=== PATIENT | male | born 1965 | race Caucasian/White ===

== ENCOUNTER → 2020-03-22 | Outpatient (CLI) | payer BC, OTHER ==
--- NOTE | 2020-03-22 12:43 | KCIC ---
Examination: MRI of the right knee without contrast HISTORY: History of right knee pain COMPARISON: None available Technique: Multiplanar, multisequence MR imaging of the right knee was performed without contrast. FINDINGS: The anterior cruciate ligament, posterior cruciate ligament appears intact. There is blunting of the body of the medial meniscus could be a small radial tear. A 1.3 cm cystic structure identified extending from the posterior root of the medial meniscus likely a small ganglion cyst. The lateral meniscus appears intact. The extensor mechanism appears intact. The medial collateral ligament appears intact. Lateral collateral ligamentous complex including the fibular collateral, biceps femoris tendon, popliteus tendon appears intact. The extensor mechanism is intact. The medial, lateral retinaculum appears intact. Small knee joint effusion. There is superficial fraying of cartilage identified in the patellar trochlea and medial and lateral compartments. There is a 1.5 cm cystic structure identified extending posteriorly from the proximal tibiofibular joint could be a small ganglion cyst. Mild joint space loss identified in medial, lateral, patellofemoral compartments. IMPRESSION: 1. Small radial tear body of the medial meniscus. 2. 1.3 cm cystic structure identified extending from the posterior root of the medial meniscus likely a small ganglion cyst. A 1.5 cm cystic structure identified extending posteriorly from the proximal tibiofibular joint could be a small ganglion cyst. 3. Mild tricompartmental degenerative changes. Electronically signed by: Doug Orozco MD (03/22/2020 12:40 PM) [id number]
== END ==
LOC: KCIC MRI 09:50
PROVIDERS: ATTEND Physician Assistant Medical
DX: S83.241A Other tear of medial meniscus, current injury, right knee, initial encounter (principal); M25.461 Effusion, right knee; M23.021 Cystic meniscus, posterior horn of medial meniscus, right knee; X58.XXXA Exposure to other specified factors, initial encounter; Y93.89 Activity, other specified; Y92.89 Other specified places as the place of occurrence of the external cause; Y99.8 Other external cause status
CPT/HCPCS: 73721

== ENCOUNTER → 2021-03-27 | Outpatient (CLI) | payer BC ==
--- NOTE | 2021-03-28 09:38 | KCIC ---
EXAM: MRI LEFT SHOULDER WITHOUT CONTRAST INDICATION: Left shoulder dislocation 2 weeks ago. Pain and limited range of motion COMPARISON: Left shoulder radiograph 03/11/2021 TECHNIQUE: Multiplanar, multisequence imaging of the lower shoulder without contrast. FINDINGS: ROTATOR CUFF: There are chronic complete tears of the supraspinatus and infraspinatus tendons. Supras pinatus tendon is retracted to at least the glenoid. The infraspinatus tendon is retracted medial to the glenoid. There is a full-thickness tear of the upper half of the subscapularis tendon at the lesser tuberosity . There is an additional full-thickness tear at the myotendinous junction in the mid to lower portion of the subscapularis (image 17 series 5 and image 15-16 series 3). Teres minor tendon is intact. There is moderate to severe fatty atrophy of most of the subscapularis muscle. Moderate fatty atrophy and mild edema in the infraspinatus muscle. There is edema in the infr aspinatus muscle. No significant fatty atrophy or edema of the supraspinatus muscle. LABRUM: Superior labral tear and fraying elsewhere. BICEPS TENDON: Tendinopathy and longitudinal split tear of the biceps tendon, which is dislocated med ially into the joint. ACROMIOCLAVICULAR JOINT: There is moderate acromioclavicular degenerative joint disease. Lateral down sloping acromion. GLENOHUMERAL JOINT: There is an acute Hill-Sachs fracture with impaction of the posterior superior hu meral head and associated marrow edema. Mild cartilage loss at the superior humeral head near the supraspinatus footprint and at the inferome dial humeral head. Glenoid cartilage is intact. There is mild posterior decentering of the humeral he ad. OTHER: There is a joint effusion with severe synovitis. IMPRESSION: 1. Chronic, complete full-thickness tears of the supraspinatus and infraspinatus tendons with retract ion to the glenoid and medial to the glenoid. 2. Full-thickness tear of the upper subscapularis tendon and additional full-thickness tear at the my otendinous junction in the mid to lower portion of the subscapularis. 3. Fatty atrophy of the subscapularis and infraspinatus muscles. Edema of the infraspinatus and teres minor muscle. No significant atrophy or edema of the supraspinatus muscle. 4. Acute Hill-Sachs fracture of the humeral head. 5. Tendinopathy and longitudinal split tear of the biceps tendon, which is dislocated medially. 6. Superior labral tear. 7. Moderate acromioclavicular degenerative joint disease. Mild glenohumeral cartilage loss. 8. Large joint effusion with synovitis. Electronically signed by: Danae Champagne MD (03/28/2021 9:35 AM) [id number]
== END ==
LOC: KCIC MRI 14:05
PROVIDERS: ATTEND Orthopaedic Surgery
DX: S43.432A Superior glenoid labrum lesion of left shoulder, initial encounter (principal); S42.292A Other displaced fracture of upper end of left humerus, initial encounter for closed fracture; S43.005A Unspecified dislocation of left shoulder joint, initial encounter; M25.412 Effusion, left shoulder; M19.012 Primary osteoarthritis, left shoulder; M75.122 Complete rotator cuff tear or rupture of left shoulder, not specified as traumatic; X58.XXXA Exposure to other specified factors, initial encounter; Y92.89 Other specified places as the place of occurrence of the external cause; Y99.8 Other external cause status; Y93.89 Activity, other specified
CPT/HCPCS: 73221